=== PATIENT | female | born 1995 | race Hispanic/Latino ===

== ENCOUNTER 2017-05-19 17:06 | Emergency (ER) | payer OTHER ==
[~2017-05-19] VITALS: Ht 157.5 cm; Wt 68.2 kg
[2017-05-19 17:11] VITALS: BP 119/85; PULSE 94; RESP 18; O2SAT 100
--- NOTE | 2017-05-19 17:18 | ED.REPORT ---
HPI-Trauma Multiple Date of Service May 19, 2017 ED Provider: Beny Salazar MD Patient is a 21 year old female who presents to the ED with a right arm laceration secondary to a fall down a steep embankment that occurred just prior to arrival. Patient reportedly fell from a steep dropoff on [address]. She reports that she and her boyfriend were hiking and fell from a small claudia after misstepping on a trail. Patient is also currently complaining of back pain/abrasions. Firefighters on the scene stabilized the patient and cleared them to the ED. She denies any LOC or head injury. Last tetanus unknown. She denies chance of . Nursing Notes Stated Complaint: RIGHT ARM LACERATION/FELL FROM [place] Chief Complaint: Multiple Trauma/Fall Nursing Notes Reviewed: Yes Allergies: Coded Allergies: No Known Allergies (Unverified , 05/19/17) Scheduled PRN Hydrocodone-Acetaminophen 5-325 mg (Hydrocodone-Acetaminophen 5-325 mg) 1 Each Tablet 1 TABLET PO Q4H PRN PRN For Pain General Time Seen by Provider: 17:18 Chief Complaint Extremity pain/injury (R arm laceration ) Hx Obtained From: Patient Arrived By: Walk-in Onset Occurred: Just prior to arrival Symptom Duration: Since onset Progression Since Onset: Unchanged Caused by: Fall from (100ft) Location: : Forearm right Quality: Painful Severity: Current: Moderate Severity: Maximum: Moderate Pertinent Negative: Pt denies other symptoms Recent Healthcare: No recent doctor visit, No recent hospitalization Past Medical History Past Medical History None reported. Past Surgical History None reported. Smoking History Unknown if Ever Smoker Social History Other Social History: Good social support, From out of town ([place]) Ambulatory Status Independent Review of Systems Female: Denies: Musculoskeletal: Reports: Back pain, Extremity pain (R arm pain) Neurologic: Denies: Change LOC, Headache Complete sys rev & neg: except as marked. Physical Exam Initial Vital Signs Vital Signs (First) Date Time Temp Pulse Resp B/P Pulse Ox O2 Delivery O2 Flow Rate FiO2 05/19/17 17:11 37.3 94 18 119/85 100 Room Air Initial VS: Reviewed Skin: Warm, Dry, No cyanosis Psychiatric: Mood/affect normal, Behavior normal, Normal thought content General/Constitutional: Awake, Alert, No acute distress, Well appearing, Well developed Head / Eyes: Atraumatic (Face and Scalp ), Normocephalic, PERRL Neck: Atraumatic, Supple Respiratory / Chest: Atraumatic, Breath sounds NL, Breath sounds = bilat, No respiratory distress Cardiovascular: Heart rate NL, Regular rhythm, Heart sounds NL, No gallop, No murmurs, No rubs, Peripheral circulation NL, Pulses = bilaterally Abdomen: Atraumatic, Soft, Non-tender, No distention Back: Atraumatic, No midline vertebral tend, No paraspinal tenderness, No CVA tenderness Trauma - General: Positive: Abrasion (Multiple scattered abrasions L > R) Neurologic: Oriented X3, Speech NL, No motor deficits, No sensory deficits, CN II - XII intact, Reflexes equal bilat NEURO: Answering questions appropriately Upper Extremity / MS: Atraumatic, No deformity, Neurologic intact (Snesation intact), Vascular intact Trauma / Burn / Environmental: Positive: Abrasion (Multiple abrasions over right forearm ), Laceration (over right forearm (1cm)) Lower Extremity / Pelvis / MS: Atraumatic, Inspection NL, Neurologic intact, Vascular intact Interpretation & Diagnostics Lab Results Interpretation Test 05/19/17 18:00 Hold Urine Received (Received) Point of Care Testing: Preg test neg - urine X-Ray Chest Interpretation Chest Xray Interpretation: IMPRESSION: No acute disease Dictated by: Dinesh Shrestha M.D. on 05/19/2017 at 19:29 Interpretation / Wet Read by: Interpret - Radiologist X-Ray Interpretation Xray Interpretation: IMPRESSION: No fracture Dictated by: Dinesh Shrestha M.D. on 05/19/2017 at 19:28 X-Ray Ordered: Elbow right Interpretation / Wet Read by: Interpret - Radiologist Procedures Laceration Management Time: 19:13 Procedure Performed by: Allied health pract Consent / Setup / Site Prep: Consent from patient, Time-out performed, Hand hygiene observed, Stand sterile technique Location of Wound: Posterior proximal left forearm Wound Length: 1 cm Local Anesthesia: Bupivacaine 0.5%, 27g needle Wound Preparation: Normal saline Debridement: Minimal Foreign Body Explore / Removal: Explored for foreign body (no FB) Repair Skin: ___ O (5), Nylon # Sutures - Skin: 1 Suture Technique: Mattress (Horizontal ) Post-Procedure / Complications: Antibiotic oint applied, Dressing applied, No complications, Condition improved, Tolerated procedure well, Patient stable Re-Eval/Medical Decision Med Decision/Clinical Course Patient is a 21 year old female who presents to the ED with a right arm laceration secondary to a fall down a steep embankment that occurred just prior to arrival. Patient reportedly fell from a steep [place]off on [address]. She reports that she and her boyfriend were hiking and fell from a small claudia after misstepping on a trail. Patient is also currently complaining of back pain/abrasions. Firefighters on the scene stabilized the patient and cleared them to the ED. She denies any LOC or head injury. Last tetanus unknown. She denies chance of . Here in the emergency department the patient is afebrile stable vital signs and examination as above. Of note she has a laceration about her right forearm and multiple abrasions about her back. There is no midline cervical, thoracic or lumbar tenderness and there are no signs of head trauma. She has good bilateral breath sounds and benign abdominal examination. The patient received intramuscular Toradol for pain and her tetanus status was updated. Urine test was negative. Plain films of the patient's right elbow demonstrated no acute fracture or dislocation. Plain films of the chest demonstrated no rib fractures, pulmonary contusions or pneumothorax. Full head to toe tertiary examination revealed no other significant injuries. The patient was observed in the emergency department for several hours during which time serial abdominal examinations remained benign and she reported no additional pain. The patient's wound was copiously irrigated and repaired as documented above. At this time, I feel the patient is appropriate for discharge. She was provided with dressings for her multiple abrasions and is advised to return in 7 days for suture removal. Prior to discharge follow-up and return precautions were reviewed in detail with the patient who verbalized understanding and agreement with the plan. The patient was discharged in stable condition. Re-Evaluation/Progress : Time of Eval: 19:13 Patient Status: Condition improved Re-Evaluation/Progress Note: Patient is rechecked. All questions about the intended treatment plan are addressed. She understands and agrees with the plan. Laceration is repaired. Counseled Regarding: Diagnosis, Need for follow-up, When/why to return to ED Discharge & Departure Impression: Primary Impression: Multiple abrasions Additional Impressions: Fall down embankment Encounter type: initial encounter Qualified Code: W17.81XA - Fall down embankment (hill), initial encounter Laceration of right forearm Encounter type: initial encounter Qualified Code: S51.811A - Laceration without foreign body of right forearm, initial encounter Disposition: Home Discharge Condition All VS Reviewed: Yes Condition: Improved Patient Instructions: Laceration (ED) Additional Instructions: Thank you for seeking care at emergency room. Our primary goal today in the ED was to evaluate you for any life-threatening conditions. Your evaluation was reassuring and your X-ray was negative for fracture. Your chest X-ray is reassuring. Please return in the next 7 days to have the stitches removed. Keep the area clean and dry for the next week. Apply nonadhesive dressing over the area. Take 1-2 Alder every 8 hours as needed for pain. You should follow-up with your primary doctor in the next week. You should return to the ED immediately if you develop any worsening pain, weakness, difficulty breathing, headache, vomiting, loss of consciousness or any other concerning signs or symptoms. Thank you for letting us partake in your care today. You have been prescribed a narcotic for pain relief. These drugs are usually combined with acetaminophen (Tylenol#3, Percocet, Darvocet, Anexsia, Vicodin) or aspirin (Empirin#3, Percodan, Synalogs-DC) for increased effect. Narcotics act on the central nervous system to reduce pain; they also impair mental alertness and physical abilities. We advise you not to drink alcohol, drive a car, or operate dangerous equipment when you are taking theses drugs. You can lessen stomach irritation from your medicine by taking it with meals or a full glass of water. Common side effects of narcotics are: Nausea and vomiting, heartburn, consitpation, dizziness, sleepiness, and mood changes. If you have bothersome side effects or symptoms of an allergic reaction (itching, hives, rash), stop taking your medicine and call your doctor or the emergency room right away. Please keep your narcotic medicine well out of the reach of children. Scribe Attestation Portions of this note were transcribed by Dia Galindo. I, Dr. Salazar personally performed the history, physical exam and medical decision-making; I reviewed and confirmed the accuracy of the information in the transcribed note. Signed by: Grzegorz Paulino, 05/19/172000. Beny Salazar MD May 19, 2017 17:18 DIA GALINDO May 19, 2017 17:41
[2017-05-19] MEDS ORDERED: TdaP Vaccine 0.5 mL Inj IM ONE (17:50)
[2017-05-19] MEDS ORDERED: Bupivacaine-MPF 0.5% 30 mL Inj ONE (18:33)
[2017-05-19] MEDS ORDERED: Bupivacaine 0.5%/EPI 50 mL Inj INFILTRATE ONE (18:35)
--- NOTE | 2017-05-19 19:30 | DRSVH ---
PROCEDURE: X-RAY RIGHT ELBOW COMPLETE, MINIMUM THREE VIEWS ([id number]) INDICATIONS: trauma TECHNIQUE: 3 views of the elbow were acquired. COMPARISON: None. FINDINGS: Bones: No fractures or dislocations. No suspicious bony lesions. Soft tissues: No elbow joint effusion. No suspicious soft tissue calcifications. IMPRESSION: No fracture Dictated by: Dinesh Shrestha M.D. on 05/19/2017 at 19:28 Approved by: Dinesh Shrestha M.D. on 05/19/2017 at 19:28
--- NOTE | 2017-05-19 19:31 | DRSVH ---
PROCEDURE: X-RAY CHEST, TWO VIEWS ([id number]) INDICATIONS: trauma TECHNIQUE: 2 views of the chest were acquired. COMPARISON: None. FINDINGS: Surgical changes and devices: None. Lungs and pleura: No pleural effusions or pneumothorax. Lungs are clear. Mediastinum: Mediastinal contours are normal. Heart size is normal. Bones and chest wall: No suspicious bony abnormalities. Soft tissues appear unremarkable. IMPRESSION: No acute disease Dictated by: Dinesh Shrestha M.D. on 05/19/2017 at 19:29 Approved by: Dinesh Shrestha M.D. on 05/19/2017 at 19:29
[2017-05-19 19:50] VITALS: BP 122/83; PULSE 83; RESP 18; O2SAT 100
[2017-05-19] MEDS ORDERED: HYDR-4003 PO (20:10)
== END 2017-05-19 20:17 | disposition home or self-care (01) ==
LOC: SED 17:06
DX: S51.811A Laceration without foreign body of right forearm, initial encounter (principal); S20.419A Abrasion of unspecified back wall of thorax, initial encounter; W17.81XA Fall down embankment (hill), initial encounter; Y92.838 Other recreation area as the place of occurrence of the external cause; Y93.01 Activity, walking, marching and hiking; Y99.8 Other external cause status; Z23 Encounter for immunization